=== PATIENT | male | born 1995 | race Caucasian/White ===

== ENCOUNTER 2017-11-22 00:22 | Emergency (ER) | payer OTHER ==
[~2017-11-22] VITALS: Ht 180.3 cm; Wt 62.6 kg
[~2017-11-22 00:22] MED LIST: AMOX500 PO; AZIT500 PO; CEPH500 PO; Cipro500 MG PO; HYDPAM50 PO; IBUP600 PO; Keflex500 MG PO; Naprosyn500 MG PO; Norco 5-325 Ta1 EACH PO; PERM5TC TOP; Pyridium200 MG PO; Ultram50 MG PO; Veetids 500500 MG PO; Zofran Odt4 MG SL
[2017-11-22] MEDS ORDERED: Amoxicillin500 MG PO (01:03)
[2017-11-22] MEDS ORDERED: IBUP600 PO (01:03)
[2018-08-02] MEDS ORDERED: Norco 5-325 Ta1 EACH PO (06:10)
[2018-08-02] MEDS ORDERED: Veetids 500500 MG PO (06:10)
== END 2017-11-22 02:07 | disposition home or self-care (01) ==
LOC: ER 00:22
DX: K02.9 Dental caries, unspecified (principal); Z79.2 Long term (current) use of antibiotics
CPT/HCPCS: 64400; 96372; 99283; J1885

== ENCOUNTER 2025-04-24 03:51 | Emergency (ER) | payer OTHER ==
[~2025-04-24] VITALS: Ht 180.3 cm; Wt 64.9 kg
[~2025-04-24 03:51] MED LIST changes: +Amoxicillin500 MG PO
[2025-04-24] MEDS ORDERED: Ondansetron HCl 2 MG / ML 2ML Vial IV ONE (04:15)
[2025-04-24] MEDS ORDERED: Morphine Sulfate 4 MG/1 ML Injection IV ONE (04:15)
[2025-04-24 04:18] LABS: BASOPHILS ABSOLUTE AUTO 0.04 K/mm3 (0.00-0.23); BASOPHILS PERCENT AUTO 0 % (0-2); EOSINOPHILS ABSOLUTE AUTO 0.10 K/mm3 (0.00-0.68); EOSINOPHILS PERCENT AUTO 1 % (0-6); Hematocrit 50.5 % (37.0-53.0); Hemoglobin 17.2 g/dL (13.5-17.5); IMMATURE GRAN ABSOLUTE AUTO 0.02 K/mm3 (0.00-0.10); IMMATURE GRAN PERCENT AUTO 0 % (0-1); LYMPHOCYTES ABSOLUTE AUTO 1.27 K/mm3 (0.84-5.20); LYMPHOCYTES PERCENT AUTO 13 % (21-46); MONOCYTES ABSOLUTE AUTO 0.59 K/mm3 (0.16-1.47); MONOCYTES PERCENT AUTO 6 % (4-13); Mean Corpuscular HGB Conc 34.1 g/dL (31.5-36.5); Mean Corpuscular Volume 87 fL (80-100); NEUTROPHILS ABSOLUTE AUTO 7.52 K/mm3 (1.96-9.15); NEUTROPHILS PERCENT AUTO 79 % (41-73); NRBC ABSOLUTE 0.00 K/mm3 (0.00-0.02); NRBC Auto 0.0 /100 WBC (0.0-0.2); Platelet Count 277 K/mm3 (150-400); RDW Coefficient Variation 12.6 % (11.7-14.2); RDW Standard Deviation 40.0 fL (35.1-46.3)
[2025-04-24 04:49] LABS: Magnesium, Blood 1.8 mg/dL (1.6-2.4)
[2025-04-24 04:50] LABS: Alanine Aminotransfer (ALT/SGP 22.0 U/L (12-78); Albumin, Blood 4.1 g/dL (3.4-5.0); Albumin/Globulin Ratio 1.2 (0.8-1.8); Anion Gap 8.0 mmol/L (3-11); Aspartate Aminotrans (AST/SGOT 23.0 U/L (12-37); Bilirubin, Total 0.7 mg/dL (0.1-1.0); Blood Urea Nitrogen 10.0 mg/dL (8-24); CO2, Blood 26.0 mmol/L (21-32); Calcium, Blood 9.4 mg/dL (8.5-10.1); Chloride, Blood 108.0 mmol/L (98-108); Creatinine, Blood 0.71 mg/dL (0.60-1.20); Globulin, Blood 3.5 g/dL (2.2-4.0); Glucose, Blood 120.0 mg/dL (70-99); Potassium, Blood 4.2 mmol/L (3.5-5.5); Sodium, Blood 138.0 mmol/L (136-145); Total Protein, Blood 7.6 g/dL (6.4-8.2)
[2025-04-24] MEDS ORDERED: ONDA4ODT MM (06:01)
[2025-04-24 06:04] LABS: Source, Urine Clean Catch
[2025-04-24] MEDS ORDERED: Ketorolac Tromethamine 15mg Vial IV ONE (06:05)
[2025-04-24 06:07] LABS: Bilirubin, Urine Neg (Neg); Color, Urine Pale Yellow (P-Yellow); Glucose Qualitative, Urine Neg (Neg); Ketones, Urine Neg (Neg); Leukocyte Esterase, Urine Neg (Neg); Protein, Urine Neg (Neg); Specific Gravity, Urine 1.010 (1.003-1.022); Urobilinogen, Urine NORM (Normal)
[2025-04-24 06:45] VITALS: BP 123/84
== END 2025-04-24 07:09 | disposition home or self-care (01) ==
LOC: ER 03:51
PROVIDERS: Student in an Organized Health Care Education/Training Program
DX: K52.9 Noninfective gastroenteritis and colitis, unspecified (principal); Z79.2 Long term (current) use of antibiotics; Z79.899 Other long term (current) drug therapy
CPT/HCPCS: 74177; 80053; 81003; 83690; 83735; 85025; 96374-59; 96375; 99284-25; J1885; J2270; J2405; J7120; Q9967